=== PATIENT | female | born 1965 | race Caucasian/White ===

== ENCOUNTER 2016-08-02 17:48 | Emergency (ER) | payer MEDICARE, MEDICAID ==
[~2016-08-02] VITALS: Ht 162.6 cm; Wt 132.0 kg
[~2016-08-02 17:48] MED LIST: INSU100V7 SQ; MEDR2.5T; METF10002
[2016-08-02 17:59] VITALS: BP 135/83
== END 2016-08-02 19:01 | disposition home or self-care (01) ==
LOC: ER 17:50
DX: M79.1 Myalgia (principal); E11.9 Type 2 diabetes mellitus without complications; M54.2 Cervicalgia; M54.5 Low back pain; M25.521 Pain in right elbow; M25.561 Pain in right knee; Z79.4 Long term (current) use of insulin; Z79.84 Long term (current) use of oral hypoglycemic drugs; Z88.6 Allergy status to analgesic agent; W18.39XA Other fall on same level, initial encounter; Y93.89 Activity, other specified; Y92.89 Other specified places as the place of occurrence of the external cause; Y99.8 Other external cause status
CPT/HCPCS: 99283; A4606; Z7502; Z7610

== ENCOUNTER 2019-02-24 22:12 | Emergency (ER) | payer MEDICARE, MEDICAID ==
[~2019-02-24] VITALS: Ht 163.8 cm; Wt 127.0 kg
[~2019-02-24 22:12] MED LIST changes: +METF-442; -METF10002
[2019-02-24 22:29] VITALS: BP 153/99
== END 2019-02-25 02:38 | disposition home or self-care (01) ==
LOC: ER 22:24
DX: M79.10 Myalgia, unspecified site (principal); M54.2 Cervicalgia; E11.9 Type 2 diabetes mellitus without complications; Z88.1 Allergy status to other antibiotic agents; Z79.4 Long term (current) use of insulin; Z79.84 Long term (current) use of oral hypoglycemic drugs; V49.49XA Driver injured in collision with other motor vehicles in traffic accident, initial encounter; Y93.89 Activity, other specified; Y92.413 State road as the place of occurrence of the external cause; Y99.8 Other external cause status
CPT/HCPCS: 72040-TC

== ENCOUNTER 2023-12-08 19:53 | Emergency (ER) | payer MEDICARE, OTHER ==
[~2023-12-08] VITALS: Ht 165.1 cm; Wt 117.9 kg
[2023-12-08] MEDS ORDERED: IBUPROFEN 600 MG TABLET ONE (21:17)
[2023-12-08] MEDS ORDERED: ACETAMINOPHEN ES 500 MG TABLET ONE (21:17)
[2023-12-08] MEDS: ACETAMINOPHEN ES 500 MG TABLET PO ONE (21:23)
[2023-12-08] MEDS: IBUPROFEN 600 MG TABLET PO ONE (21:23)
[2023-12-09 05:42] VITALS: BP 126/99; TEMP 98; O2SAT 97
== END 2023-12-09 05:43 | disposition home or self-care (01) ==
LOC: ER 19:55
DX: S00.83XA Contusion of other part of head, initial encounter (principal); S30.811A Abrasion of abdominal wall, initial encounter; G51.0 Bell's palsy; I10 Essential (primary) hypertension; E11.9 Type 2 diabetes mellitus without complications; Z79.4 Long term (current) use of insulin; Z79.84 Long term (current) use of oral hypoglycemic drugs; Z88.1 Allergy status to other antibiotic agents; Y04.8XXA Assault by other bodily force, initial encounter; Y93.89 Activity, other specified; Y92.89 Other specified places as the place of occurrence of the external cause; Y99.8 Other external cause status
CPT/HCPCS: 70450-TC; 70486-TC